=== PATIENT | female | born 1960 | race Caucasian/White ===

== ENCOUNTER 2022-08-15 14:46 | Emergency (ER) | payer BC ==
[2022-08-15] MEDS ORDERED: Lidocaine 1% with EPINEPHrine 1:100,000 10 ML MDV ONE (15:01)
[2022-08-15] MEDS ORDERED: Lidocaine/Epineph/Tetracaine 3 ML Syringe TOP ONE ×2 (15:11→15:12)
[2022-08-15 15:31] LABS: ANION GAP 17.3 mmol/L (5-15); CHLORIDE,CL 100 mmol/L (98-107); SODIUM,NA 137 mmol/L (136-145)
[2022-08-15 15:37] LABS: ESTIMATED GFR 64 mL/min (>=60)
[2022-08-15] MEDS ORDERED: Diphtheria,Pertussis(Acell),Tetanus Vaccine 0.5 ML Syringe IM ONE (16:28)
[2022-08-15] MEDS ORDERED: Bacitracin/Neomycin/Polymyxin B Oint 28.4 GM Tube ONE (17:01)
[2022-08-15] MEDS ORDERED: Bacitracin/Neomycin/Polymyxin B Oint 28.4 GM Tube TOP ONE (17:44)
[2022-08-15] MEDS ORDERED: Cephalexin 250 MG Cap PO ONE ×2 (18:45→18:46)
== END 2022-08-15 19:01 | disposition home or self-care (01) ==
LOC: MERGE 14:46 → KA.ED 14:46
DX: S81.811A Laceration without foreign body, right lower leg, initial encounter (principal); S81.812A Laceration without foreign body, left lower leg, initial encounter; R74.01 Elevation of levels of liver transaminase levels; F10.129 Alcohol abuse with intoxication, unspecified; I10 Essential (primary) hypertension; F17.210 Nicotine dependence, cigarettes, uncomplicated; Z23 Encounter for immunization; Z79.899 Other long term (current) drug therapy; Z91.018 Allergy to other foods; Z91.030 Bee allergy status; Z88.8 Allergy status to other drugs, medicaments and biological substances; W10.9XXA Fall (on) (from) unspecified stairs and steps, initial encounter
CPT/HCPCS: 12007; 36415; 73590; 80053; 80307; 85025; 90471; 90715; 99283; 99284; A9270